=== PATIENT | male | born 1985 ===

== ENCOUNTER 2020-05-26 13:30 | Emergency (ER) | payer SELFPAY ==
[2020-05-26 13:44] VITALS: BP 122/81; PULSE 64; RESP 18; TEMP 36.6; O2SAT 100
--- NOTE | 2020-05-26 14:51 | PC.NURSE ---
pt stated that he could not wait all day and left the dept made aware that he is welcome to return if s/s increase or worsen, pt agreeable to this
== END 2020-05-26 14:51 | disposition left against medical advice (07) ==
DX: K08.89 Other specified disorders of teeth and supporting structures (principal)
CPT/HCPCS: 99199